=== PATIENT | female | born 1955 | race Caucasian/White ===

== ENCOUNTER 2017-04-26 20:01 | Inpatient (IN) | payer MEDICARE ==
[~2017-04-26] VITALS: Ht 172.7 cm; Wt 85.3 kg
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
--- NOTE | ~2017-04-26 | HP ---
Unit #: [id number] #: [id number] Patient: NONA WOMACK [id number] [place] [address] [id number] MR#: [id number] NAME: NONA WOMACK ROOM: P113 Age: 62 Sex: F Admission Date: 04/26/2017 : 1955 Attending Physician: Grey Mullins M.D. Admitting Physician: Grey Mullins M.D. Primary Care Physician: Praful Wilder M.D. HISTORY AND PHYSICAL NOTE Nona is a 62-year-old who was admitted and discharged within the first 24 hours. She was not seen for an H & P. Dictated by... Tonja Mckeon P.A.-C. for Nicole Lyons/irene TD: 04/27/2017 20:47 JOB #: [id number] HISTORY AND PHYSICAL Page 1 of 1 X Tonja Mckeon HISTORY AND PHYSICAL
--- NOTE | ~2017-04-26 | DS ---
Unit #: [id number] #: [id number] Patient: NONA WOMACK [id number] [place] [address] [id number] I MR#: [id number] NAME: NONA WOMACK ROOM: P113 Age: 62 Sex: F Admission Date: 04/26/2017 : 1955 Discharge Date: 04/27/2017 Attending Physician: Grey Mullins M.D. Primary Care Physician: Praful Wilder M.D. DISCHARGE SUMMARY REASON FOR ADMISSION Ms. Womack is a 62-year-old woman, known to me from previous admissions to this facility as well as from my outpatient treatment practice. She had increasing conflict with family members and made suicidal threats to overdose on her medication. She was admitted for assessment. DIAGNOSTIC STUDIES LABORATORY RESULTS: Please see hospital chart. HOSPITAL COURSE Nona was admitted overnight and placed on suicide precautions and returned to her previous medications. During my initial assessment, she adamantly denied suicidal ideation, intent, or plan and stated that this was "over blunt." She stated that she wanted to attend outpatient treatment instead, as she felt she needed the therapy and possibly brief medication management. Given my history with this patient, I was unable to obtain a reliable contract for safety and she was discharged at her request. DISCHARGE DIAGNOSES AXIS I: Major depression, recurrent; dysthymic disorder. AXIS II: Cluster B traits noted. AXIS III: Diabetes, hypertension, osteoporosis, gastroparesis, anemia, GERD, history of gastric bypass, migraine headaches, history of arrhythmia. AXIS IV: AXIS V: DISCHARGE INSTRUCTIONS Follow up with the psych IOP at [facility]. DISCHARGE MEDICATIONS No changes were made to medications. CONDITION AT DISCHARGE Fair. PROGNOSIS Fair. DIET AND ACTIVITY Unit #: [id number] #: [id number] Patient: NONA WOMACK Per primary care doctor. Dictated by... Grey Mullins M.D. [facility]/magdalena TD: 05/07/2017 18:42 JOB #: [id number] DISCHARGE SUMMARY Page 1 of 1 X Grey Mullins MD X DISCHARGE SUMMARY
[~2017-04-26 20:01] MED LIST: ABILIFY10 MG PO; ALBUTEROL17 GM INH; ATENOLOL25 MG PO; BENTYL10 M1 PO; BUSPAR15 M1 PO; DESYREL100 MG PO; EFFEXOR XR150 MG PO; HUMALOG100 U/ML SUBQ; HYDROCODON-ACE1 EAC5 PO; KCL PO; LANTUS100 U/ML SUBQ; PANTOPRAZOLE SO40 MG PO; PHENERGAN25 M1 PO; QUDEXY XR50 MG PO; VITAMIN B12 INJ; VITAMIN D2400 UNIT PO
== END 2017-04-27 14:06 | DRG 885 ==
LOC: P1S 22:57
DX: F33.2 Major depressive disorder, recurrent severe without psychotic features (principal); E11.9 Type 2 diabetes mellitus without complications; I10 Essential (primary) hypertension; F41.9 Anxiety disorder, unspecified; M81.0 Age-related osteoporosis without current pathological fracture
CPT/HCPCS: 82947